=== PATIENT | female | born 1930 | race Caucasian/White ===

== ENCOUNTER 2017-10-25 08:20 | Emergency (ER) | payer MEDICARE ==
[2017-10-25 08:31] VITALS: O2SAT 97
--- NOTE | 2017-10-25 08:37 | ERPHSYRPT ---
- History of Present Illness Time Seen by Provider: 10/25/17 08:32 Source: patient, EMS Exam Limitations: no limitations Patient Subjective Stated Complaint: [facility]YANT REPORTS FINDING PT ON FLOOR AT [id number] THAT HER LEFT KNEE "LOOKED TWISTED" Triage Nursing Assessment: PT PRESENTS TO ED WITH NO C/O PAIN-FULL ROM TO BILATERAL LOWER EXTREMITIES-NO OBVIOUS DEFORMITY-NO SWELLING OR OTHER INJURY NOTED-PT AMBULATORY WITH NO DIFFICULTY OR C/O PAIN-PT ALERT-ANSWERING QUESTIONS CORRECTLY Physician History: 86-year-old white female with history of Alzheimer's, bipolar, dementia, TIA, COPD, anxiety Patient arrives via medics patient apparently fell at the custodial. Patient is not complaining of any pain at this time patient has no complaints at this time. Past medical history includes bipolar, Alzheimer, dementia, TIA, COPD, anxiety Patient has a history of a pubic rami fracture with involvement of the left acetabular anterior column in the past. Also a history of a right hip replacement Past surgical history right hip replacement Timing/Duration: today Severity: mild Modifying Factors: Improves With: other (fall at custodial prior to arrival ) Associated Symptoms: No nausea, No vomiting, No abdominal pain, No shortness of breath, No heartburn, No diaphoresis, No cough, No chills, No chest pain, No fever, No headaches, No loss of appetite, No malaise, No rash, No syncope, No seizure, No weakness Allergies/Adverse Reactions: No Known Drug Allergies Allergy (Verified 10/25/17 08:32) Home Medications: Carboxymethylcellulose Sodium [Thera Tears] 1 each OP QID 01/31/13 [History] Clopidogrel Bisulfate 75 mg [PLAVIX 75 MG Tablet] 75 mg PO DAILY 01/31/13 [History] Lamotrigine [Lamictal] 100 mg PO BID 01/31/13 [History] Lisinopril 10 mg [Zestril 10 MG] 10 mg PO DAILY 01/31/13 [History] Olanzapine [Zyprexa] 20 mg PO HS 01/31/13 [History] Risperidone [Risperdal] 0.5 mg PO BID 01/31/13 [History] Hx Tetanus, Diphtheria Vaccination/Date Given: No Hx Influenza Vaccination/Date Given: Yes Hx Pneumococcal Vaccination/Date Given: No Immunizations Up to Date: Yes - Review of Systems Constitutional: No Fever, No Chills Eyes: No Symptoms Ears, Nose, & Throat: No Symptoms Respiratory: No Cough, No Dyspnea Cardiac: No Chest Pain, No Edema, No Syncope Abdominal/Gastrointestinal: No Abdominal Pain, No Nausea, No Vomiting, No Diarrhea Genitourinary Symptoms: No Dysuria Musculoskeletal: No Symptoms, Fall, Other (patient fell at custodial apparently, patient appeared to have twisted her which needle left rightleft knee at the custodial), No Arthralgias, No Back Pain, No Neck Pain, No Deformity, No Injury, No Joint Redness, No Joint Pain, No Joint Swelling, No Myalgias Skin: No Rash Neurological: No Dizziness, No Focal Weakness, No Sensory Changes Psychological: No Symptoms Endocrine: No Symptoms All Other Systems: Reviewed and Negative - Past Medical History Pertinent Past Medical History: Yes Neurological History: Alzheimer's Disease, Dementia, TIA Cardiac History: No Pertinent History Respiratory History: COPD Endocrine Medical History: No Pertinent History Musculoskeletal History: Arthritis GI Medical History: No Pertinent History History: No Pertinent History Psycho-Social History: Anxiety, Bipolar Female Reproductive Disorders: No Pertinent History - Past Surgical History Past Surgical History: Yes Musculoskeletal: Orthopedic Surgery Other Surgical History: left hip replacement - Social History Smoking Status: Former smoker Exposure to second hand smoke: No Drug Use: none Patient Lives Alone: No - Female History Hx Now: No - Nursing Vital Signs Nursing Vital Signs: Initial Vital Signs Temperature 97.9 F 10/25/17 08:27 Pulse Rate 86 10/25/17 08:27 Respiratory Rate 18 10/25/17 08:27 Blood Pressure 146/73 10/25/17 08:27 O2 Sat by Pulse Oximetry 97 10/25/17 08:27 Pain Scale Pain Intensity 0 - Physical Exam General Appearance: no apparent distress, alert, other (elderly-appearing white female in no apparent distress oriented to person and place) Eye Exam: PERRL/EOMI, eyes nml inspection Ears, Nose, Throat Exam: normal ENT inspection, TMs normal, pharynx normal, moist mucous membranes Neck Exam: normal inspection, non-tender, supple, full range of motion Respiratory Exam: normal breath sounds, lungs clear, No respiratory distress Cardiovascular Exam: regular rate/rhythm, normal heart sounds, normal peripheral pulses Gastrointestinal/Abdomen Exam: soft, normal bowel sounds, No tenderness, No mass Back Exam: normal inspection, normal range of motion, No CVA tenderness, No vertebral tenderness Extremity Exam: normal inspection, normal range of motion, pelvis stable, other (patient with full range of motion to all extremities, no hip tenderness, no knee tenderness full range of motion bilateral anklles) Neurologic Exam: alert, oriented x 3, cooperative, normal mood/affect, nml cerebellar function, nml station & gait, sensation nml, No motor deficits Skin Exam: warm, dry, other (stasis dermatitis bilateral lower extremities, ), No rash Lymphatic Exam: No adenopathy SpO2 Interpretation: normal (97%) SpO2: 97 Oxygen Delivery: Room Air - Course Nursing assessment & vital signs reviewed: Yes - Progress Progress: improved Progress Note: 10/25/17 08:38 86-year-old white female with history of prior hip replacement on the right. Noted to fall at the custodial this morning. The nurse apparently at the custodial felt that the patient had a twisted knee on the left. Patient arrives she is in no apparent distress she has full range of motion to all extremities pelvis is stable there is no pain with movement of hips knees and ankles. She does have chronic stasis dermatitis bilateral extremities however there is no signs of infection patient is able to ambulate with the nurses without problems will return to custodial. . - Departure Time of Disposition: 08:39 Departure Disposition: Extended Care Facility Clinical Impression: Accidental fall Qualifiers: Encounter type: initial encounter Qualified Code(s): W19.XXXA - Unspecified fall, initial encounter Condition: Fair Critical Care Time: No Referrals: SAMMI MINA [Primary Care Provider] - Instructions: Preventing Falls Additional Instructions: Return to custodial Resume current medications and treatments. Follow-up with family . Return for acute distress or for severe symptoms.
[2017-10-25 09:29] VITALS: BP 169/72; PULSE 82
== END 2017-10-25 09:29 | disposition home or self-care (01) ==
LOC: ED 08:20
DX: Z03.89 Encounter for observation for other suspected diseases and conditions ruled out (principal); W19.XXXA Unspecified fall, initial encounter; Y92.129 Unspecified place in nursing home as the place of occurrence of the external cause; I87.2 Venous insufficiency (chronic) (peripheral); Z79.899 Other long term (current) drug therapy; Z79.01 Long term (current) use of anticoagulants
CPT/HCPCS: 99281

== ENCOUNTER 2017-12-05 18:38 | Emergency (ER) | payer MEDICARE ==
[2017-12-05] MEDS ORDERED: PROVENTIL 2.5 MG/3 ML NEB IH ONE ×2 (18:40→18:48)
[2017-12-05] MEDS ORDERED: Sodium Chloride 0.9% 1000 ML 1,000 ML IV SCH (18:45)
[2017-12-05] MEDS ORDERED: Zosyn 3.375GM/100 Ml D5W 3.375 GM/100 ML IVPB IV STA (18:50)
[2017-12-05 19:00] LABS: Lactic Acid 1.1 (0.4-2.0); VBG BASE EXCESS 1.4 (-2.0-2.0); VBG CARBOXYHEMOGLOBIN 1.8 % T HGB (0.0-6.9); VBG HCO3- 33.4 meq/L (22-28); VBG O2 SATURATION 86.9 (95-100); VBG POTASSIUM 3.9 (3.5-5.1)
[2017-12-05 19:01] LABS: VBG pH 7.14 (7.32-7.42)
[2017-12-05 19:09] LABS: Granulocyte Absolute (ANC) 4.41 (1.4-6.9); Hemoglobin 12.2 gm/dl (12.0-16.0); Mean Cell Volume 96.5 fl (78-100); Mean Corpuscular Hgb Concent. 31.3 g/dl (32-36); Mean Platelet Volume 10.3 fl (6-9.5); Platelet Count 369 K/mm3 (150-450); Red Blood Count 4.04 M/mm3 (4.1-5.4); Red Cell Distribution Width 13.5 % (11.5-14.0); White Blood Count 10.1 K/mm3 (4.0-10.5)
[2017-12-05 19:17] LABS: Mean Corpuscular Hemoglobin 30.1 pg (26-32)
[2017-12-05 19:20] VITALS: O2SAT 100
[2017-12-05] MEDS ORDERED: Zosyn 3.375GM/100 Ml D5W 3.375 GM/100 ML IVPB IV ONE (19:25)
[2017-12-05] MEDS ORDERED: Sodium Chloride 0.9% 1000 ML 1,000 ML ONE (19:25)
[2017-12-05 19:30] LABS: ALBUMIN 4.3 g/dL (3.5-5.0); ALKALINE PHOSPHATASE 108 U/L (38-126); ANION GAP 15.7 MEQ/L (5-15); BLOOD UREA NITROGEN 17 mg/dL (7-17); CHLORIDE 95 mmol/L (98-107); Calcium 9.3 mg/dL (8.4-10.2); Carbon Dioxide 30 mmol/L (22-30); Creatinine 1 0.92 mg/dL (0.52-1.04); Glucose 307 mg/dL (74-106); Potassium 3.9 mmol/L (3.5-5.1); SGOT/AST 27 U/L (14-36); SGPT/ALT 15 U/L (0-35); SODIUM 137 mmol/L (137-145); Total Protein 7.2 g/dL (6.3-8.2)
[2017-12-05 19:39] LABS: NT PRO BNP 494 pg/mL (0-1800)
[2017-12-05 19:43] LABS: PTT 32.3 SECONDS (25.3-37.0)
[2017-12-05 19:57] LABS: Appearance CLEAR (CLEAR); Bilirubin NEGATIVE (NEGATIVE); Glucose 250 mg/dL (NEGATIVE); Ketones NEGATIVE (NEGATIVE); Leukocyte Esterase TRACE (NEGATIVE); Nitrite NEGATIVE (NEGATIVE); Protein,Urine Dip NEGATIVE (Negative); Urobilinogen NORMAL mg/dL (0-1)
[2017-12-05 19:58] LABS: Bacteria FEW /HPF (NEGATIVE); Blood 50 Ery/ul (0-5); Epithelial Cells FEW /HPF (FEW); WBC 0-2 /HPF (0-5)
[2017-12-05 20:03] LABS: ATYPICAL LYMPHS 12 %; BAND 2 % (0.0-2.0); Lymphocytes 40 % (24-44); Monocyte 2 % (0.0-12.0); Neutrophils 44 % (36.0-66.0); Platelet Estimate NORMAL (NORMAL); Total Cells Counted 100
--- NOTE | 2017-12-05 20:10 | ERPHSYRPT ---
- History of Present Illness Time Seen by Provider: 12/05/17 18:40 Source: patient, EMS Exam Limitations: other (DEMENTIA) Patient Subjective Stated Complaint: EMS REPORTS PATIENT WAS EATING AND HAD SUDDEN ONSET OF SHORTNESS OF BREATH. NO HX CHF OR COPD. SKIN WARM/DRY. PATIENT RESPONDING TO VERBAL STIMULI BUT IS NOT ABLE TO SPEAK AT THIS TIME. Triage Nursing Assessment: SKIN WARM/DRY. PATIENT RESPONDING TO VERBAL STIMULI BUT IS NOT ABLE TO SPEAK AT THIS TIME. NRB MASK ON AT 15L. SUCTIONED ORALLY WITH ONLY SMALL AMT CLEAR MUCOUS OBTAINED. Physician History: ABOUT 90 MINUTES AGO PT WAS EATING AND STARTED CHOKING WITH RESULTANT SHORTNESS OF AIR WITH OXYGEN SATURATION IN THE 60'S AT THE LONGTERM. PT HAS DEMENTIA. Allergies/Adverse Reactions: No Known Drug Allergies Allergy (Verified 12/05/17 19:08) Home Medications: Clindamycin HCl [Clindamycin HCl] 300 mg PO TID 10/25/17 [History] Clopidogrel Bisulfate [Clopidogrel] 75 mg PO DAILY 10/25/17 [History] Furosemide [Furosemide] 40 mg PO DAILY 10/25/17 [History] Hydrocodone/Acetaminophen [Hydrocodone-Acetamin 5-325 mg] 1 tab PO UD PRN [History] Lamotrigine [Lamotrigine] 25 mg PO BID 10/25/17 [History] Mirtazapine [Mirtazapine] 15 mg PO HS 10/25/17 [History] Olanzapine [Olanzapine] 20 mg PO HS 10/25/17 [History] Multivit,Tx with Iron,Minerals [Bykybxrj-C-A with Minerals] 1 each PO DAILY [History] Potassium Chloride 10 Meq Tab* [Klor Con 10 MEQ] 10 meq PO DAILY 12/05/17 [ History] Hx Tetanus, Diphtheria Vaccination/Date Given: No Hx Influenza Vaccination/Date Given: Yes Hx Pneumococcal Vaccination/Date Given: Yes - Review of Systems Respiratory: Dyspnea All Other Systems: Unable due to dementia - Past Medical History Pertinent Past Medical History: Yes Neurological History: Alzheimer's Disease, Dementia, TIA Cardiac History: No Pertinent History Respiratory History: COPD Endocrine Medical History: No Pertinent History Musculoskeletal History: Arthritis GI Medical History: No Pertinent History History: No Pertinent History Psycho-Social History: Anxiety, Bipolar Female Reproductive Disorders: No Pertinent History - Past Surgical History Past Surgical History: Yes Musculoskeletal: Orthopedic Surgery Other Surgical History: left hip replacement - Social History Smoking Status: Former smoker Exposure to second hand smoke: No Drug Use: none Patient Lives Alone: No - Nursing Vital Signs Nursing Vital Signs: Initial Vital Signs Temperature 98.8 F 12/05/17 18:40 Pulse Rate 112 H 12/05/17 18:40 Respiratory Rate 30 H 12/05/17 18:40 Blood Pressure 203/108 12/05/17 18:40 O2 Sat by Pulse Oximetry 88 L 12/05/17 18:40 Pain Scale Pain Intensity 0 - Physical Exam General Appearance: alert Eye Exam: PERRL/EOMI Ears, Nose, Throat Exam: pharynx normal, moist mucous membranes, other (H.O.H.) Neck Exam: normal inspection Respiratory Exam: diminished breath sounds Cardiovascular Exam: tachycardia Gastrointestinal/Abdomen Exam: soft, normal bowel sounds Back Exam: other (DECUBITUS ULCER ~ 1 CM DIAMETER MID BACK) Extremity Exam: pedal edema (+1 BILATERALLY) Neurologic Exam: alert, cooperative Skin Exam: decubitus (MEDIAL ASPECT OF BUTTOCKS ) SpO2 Interpretation: normal SpO2: 100 Oxygen Delivery: BiPap - Course Nursing assessment & vital signs reviewed: Yes EKG Interpreted by Me: RATE (105), Sinus Tach, Left [place] Deviation, Non- specific ST Changes - Radiology Exams Chest X-ray Interpretation: Interpreted by me (RLL PNEUMONIA) Ordered Tests: Active Orders 24 hr Category Date Time Status [employer] Analyst STAT Care 12/05/17 18:41 Active Catheter-[place] STAT Care 12/05/17 18:40 Active EKG-ER Only STAT Care 12/05/17 18:40 Active IV Insertion STAT Care 12/05/17 18:40 Active NPO (ED) STAT Care 12/05/17 18:40 Active Pulse Oximetry (ED) STAT Care 12/05/17 18:42 Active CHEST 1 VIEW (PORTABLE) Stat Exams 12/05/17 18:50 Taken ABG [ARTERIAL BLOOD GASES] Urgent Lab 12/05/17 22:20 Completed BLOOD CULTURE Stat Lab 12/05/17 19:05 Received CBC W DIFF Stat Lab 12/05/17 18:30 Completed CMP Stat Lab 12/05/17 18:30 Completed CULTURE,SPUTUM Stat Lab 12/05/17 18:40 Uncollected CULTURE,URINE Stat Lab 12/05/17 19:21 Received Lactic Acid Stat Lab 12/05/17 18:40 Completed MAGNESIUM Stat Lab 12/05/17 18:30 Completed Manual Differential NC Stat Lab 12/05/17 18:30 Completed NT PRO BNP Stat Lab 12/05/17 18:30 Completed PROTIME WITH INR Stat Lab 12/05/17 18:30 Completed PTT Stat Lab 12/05/17 18:30 Completed TROPONIN Q3H Lab 12/05/17 18:30 Completed TROPONIN Q3H Lab 12/05/17 21:55 Received TROPONIN Q3H Lab 12/06/17 00:45 Ordered TROPONIN Q3H Lab 12/06/17 03:45 Ordered TROPONIN Q3H Lab 12/06/17 06:45 Ordered UA W/ MICROSCOPIC Stat Lab 12/05/17 19:21 Completed VENOUS BLOOD GAS Stat Lab 12/05/17 18:40 Completed BiPap/CPAP Assessment STAT RT 12/05/17 18:42 Active Respiratory Nebulizer STAT RT 12/05/17 18:41 Completed Medication Summary Generic Name Dose Route Start Last Admin Trade Name Freq PRN Reason Stop Dose Admin Sodium Chloride 1,000 mls @ 100 mls/hr 12/05/17 18:45 12/05/17 19:26 Sodium Chloride 0.9% 1000 Ml IV 01/04/18 18:44 100 mls/hr .Q10H ROYA Administration Discontinued Medications Generic Name Dose Route Start Last Admin Trade Name Freq PRN Reason Stop Dose Admin Albuterol Sulfate 2.5 mg 12/05/17 18:40 12/05/17 18:48 Proventil 2.5 Mg/3 Ml Neb IH 12/05/17 18:41 2.5 mg STAT ONE Administration Albuterol Sulfate Confirm 12/05/17 18:48 Proventil 2.5 Mg/3 Ml Neb Administered 12/05/17 18:49 Dose 2.5 mg IH .STK-MED ONE Piperacillin Sod/Tazobactam Sod 3.375 gm in 100 mls @ 200 mls/hr 12/05/17 18: 50 12/05/17 19:27 Zosyn 3.375gm/100 Ml D5w IV 12/05/17 19:19 200 mls/hr STAT STA Administration Piperacillin Sod/Tazobactam Sod Confirm 12/05/17 19:25 Zosyn 3.375gm/100 Ml D5w Administered 12/05/17 19:26 Dose 3.375 gm in 100 mls @ ud IV .STK-MED ONE Lab/Rad Data: Laboratory Result Diagrams 12/05/17 18:30 12/05/17 18:30 Laboratory Results 12/05/17 12/05/17 12/05/17 Range/Units 22:20 19:21 18:40 WBC (4.0-10.5) K/mm3 RBC (4.1-5.4) M/mm3 Hgb (12.0-16.0) gm/dl Hct (35-47) % MCV (78-100) fl MCH (26-32) pg MCHC (32-36) g/dl RDW (11.5-14.0) % Plt Count (150-450) K/mm3 MPV (6-9.5) fl Segmented Neutrophils (36.0-66.0) % Band Neutrophils (0.0-2.0) % Lymphocytes (Manual) (24-44) % Monocytes (Manual) (0.0-12.0) % Differential Comment Atypical Lymphocytes % Platelet Estimate (NORMAL) INR (0.8-3.0) APTT (25.3-37.0) SECONDS Puncture Site RIGHT BRACHIAL pCO2 64 H* (35-45) mmHg pO2 200 H* (75-100) mmHg Base Excess 5.8 H (-2.0-2.0) O2 Saturation 96.7 (94-100) g/dF ABG pH 7.33 L (7.35-7.45) ABG HCO3 33.7 H* (22-28) ABG O2 Sat (Measured) 99.5 (95-100) % Angel Test NOT APPLICABLE VBG pH 7.14 L* (7.32-7.42) VBG pCO2 at Pat Temp 98 H* (42-55) mm/Hg VBG pO2 at Pat Temp 55 H (25-40) mm/Hg VBG HCO3 33.4 H* (22-28) meq/L VBG O2 Sat (Sukhjinder) 86.9 L (95-100) VBG Base Excess 1.4 (-2.0-2.0) VBG Hemoglobin 13.0 VBG Carboxyhemoglobin 1.8 (0.0-6.9) % T HGB A-a Gradient 255 a/A Ratio 0.44 Hemoglobin 12.9 Carboxyhemoglobin 1.4 (0.0-6.9) % THgb Methemoglobin 1.4 (1.4-1.5) % POC Potassium 3.9 (3.5-5.1) Temperature 37.0 C POC O2 Flow Rate 75 % Vent Mode BiPAP Inspiratory BiPAP 14 Expiratory BiPAP 8 Sodium (137-145) mmol/L Potassium 3.7 (3.5-5.1) mmol/L Chloride (98-107) mmol/L Carbon Dioxide (22-30) mmol/L Anion Gap (5-15) MEQ/L BUN (7-17) mg/dL Creatinine (0.52-1.04) mg/dL Estimated GFR ML/MIN Glucose (74-106) mg/dL Lactic Acid 1.1 (0.4-2.0) Calcium (8.4-10.2) mg/dL Magnesium (1.6-2.3) mg/dL Total Bilirubin (0.2-1.3) mg/dL AST (14-36) U/L ALT (0-35) U/L Alkaline Phosphatase (38-126) U/L Troponin I (0.000-0.034) ng/mL NT-Pro-B Natriuret Pep (0-1800) pg/mL Serum Total Protein (6.3-8.2) g/dL Albumin (3.5-5.0) g/dL Ur Collection Type CATH Urine Color YELLOW (YELLOW) Urine Appearance CLEAR (CLEAR) Urine pH 5.0 (5-6) Ur Specific [place] 1.010 (1.005-1.025) Urine Protein NEGATIVE (Negative) Urine Ketones NEGATIVE (NEGATIVE) Urine Blood 50 (0-5) Shan/ul Urine Nitrite NEGATIVE (NEGATIVE) Urine Bilirubin NEGATIVE (NEGATIVE) Urine Urobilinogen NORMAL (0-1) mg/dL Ur Leukocyte Esterase TRACE (NEGATIVE) Urine Microscopic RBC 0-2 (0-2) /HPF Urine Microscopic WBC 0-2 (0-5) /HPF Ur Epithelial Cells FEW (FEW) /HPF Urine Bacteria FEW (NEGATIVE) /HPF Urine Culture Reflexed YES (NO) Urine Glucose 250 (NEGATIVE) mg/dL Specimen Received 12/05/17 19312/05/17 12/05/17 12/05/17 Range/Units 18:30 18:30 18:30 WBC (4.0-10.5) K/mm3 RBC (4.1-5.4) M/mm3 Hgb (12.0-16.0) gm/dl Hct (35-47) % MCV (78-100) fl MCH (26-32) pg MCHC (32-36) g/dl RDW (11.5-14.0) % Plt Count (150-450) K/mm3 MPV (6-9.5) fl Segmented Neutrophils (36.0-66.0) % Band Neutrophils (0.0-2.0) % Lymphocytes (Manual) (24-44) % Monocytes (Manual) (0.0-12.0) % Differential Comment Atypical Lymphocytes % Platelet Estimate (NORMAL) INR 1.00 (0.8-3.0) APTT 32.3 (25.3-37.0) SECONDS Puncture Site pCO2 (35-45) mmHg pO2 (75-100) mmHg Base Excess (-2.0-2.0) O2 Saturation (94-100) g/dF ABG pH (7.35-7.45) ABG HCO3 (22-28) ABG O2 Sat (Measured) (95-100) % Angel Test VBG pH (7.32-7.42) VBG pCO2 at Pat Temp (42-55) mm/Hg VBG pO2 at Pat Temp (25-40) mm/Hg VBG HCO3 (22-28) meq/L VBG O2 Sat (Sukhjinder) (95-100) VBG Base Excess (-2.0-2.0) VBG Hemoglobin VBG Carboxyhemoglobin (0.0-6.9) % T HGB A-a Gradient a/A Ratio Hemoglobin Carboxyhemoglobin (0.0-6.9) % THgb Methemoglobin (1.4-1.5) % POC Potassium (3.5-5.1) Temperature C POC O2 Flow Rate % Vent Mode Inspiratory BiPAP Expiratory BiPAP Sodium 137 (137-145) mmol/L Potassium 3.9 (3.5-5.1) mmol/L Chloride 95 L (98-107) mmol/L Carbon Dioxide 30 (22-30) mmol/L Anion Gap 15.7 H (5-15) MEQ/L BUN 17 (7-17) mg/dL Creatinine 0.92 (0.52-1.04) mg/dL Estimated GFR > 60 ML/MIN Glucose 307 H (74-106) mg/dL Lactic Acid (0.4-2.0) Calcium 9.3 (8.4-10.2) mg/dL Magnesium 1.8 (1.6-2.3) mg/dL Total Bilirubin 0.30 (0.2-1.3) mg/dL AST 27 (14-36) U/L ALT 15 (0-35) U/L Alkaline Phosphatase 108 (38-126) U/L Troponin I 0.016 (0.000-0.034) ng/mL NT-Pro-B Natriuret Pep 494 (0-1800) pg/mL Serum Total Protein 7.2 (6.3-8.2) g/dL Albumin 4.3 (3.5-5.0) g/dL Ur Collection Type Urine Color (YELLOW) Urine Appearance (CLEAR) Urine pH (5-6) Ur Specific [place] (1.005-1.025) Urine Protein (Negative) Urine Ketones (NEGATIVE) Urine Blood (0-5) Shan/ul Urine Nitrite (NEGATIVE) Urine Bilirubin (NEGATIVE) Urine Urobilinogen (0-1) mg/dL Ur Leukocyte Esterase (NEGATIVE) Urine Microscopic RBC (0-2) /HPF Urine Microscopic WBC (0-5) /HPF Ur Epithelial Cells (FEW) /HPF Urine Bacteria (NEGATIVE) /HPF Urine Culture Reflexed (NO) Urine Glucose (NEGATIVE) mg/dL Specimen Received 12/05/17 Range/Units 18:30 WBC 10.1 (4.0-10.5) K/mm3 RBC 4.04 L (4.1-5.4) M/mm3 Hgb 12.2 (12.0-16.0) gm/dl Hct 39.0 (35-47) % MCV 96.5 (78-100) fl MCH 30.1 (26-32) pg MCHC 31.3 L (32-36) g/dl RDW 13.5 (11.5-14.0) % Plt Count 369 (150-450) K/mm3 MPV 10.3 H (6-9.5) fl Segmented Neutrophils 44 (36.0-66.0) % Band Neutrophils 2 (0.0-2.0) % Lymphocytes (Manual) 40 (24-44) % Monocytes (Manual) 2 (0.0-12.0) % Differential Comment NORMAL Atypical Lymphocytes 12 % Platelet Estimate NORMAL (NORMAL) INR (0.8-3.0) APTT (25.3-37.0) SECONDS Puncture Site pCO2 (35-45) mmHg pO2 (75-100) mmHg Base Excess (-2.0-2.0) O2 Saturation (94-100) g/dF ABG pH (7.35-7.45) ABG HCO3 (22-28) ABG O2 Sat (Measured) (95-100) % Angel Test VBG pH (7.32-7.42) VBG pCO2 at Pat Temp (42-55) mm/Hg VBG pO2 at Pat Temp (25-40) mm/Hg VBG HCO3 (22-28) meq/L VBG O2 Sat (Sukhjinder) (95-100) VBG Base Excess (-2.0-2.0) VBG Hemoglobin VBG Carboxyhemoglobin (0.0-6.9) % T HGB A-a Gradient a/A Ratio Hemoglobin Carboxyhemoglobin (0.0-6.9) % THgb Methemoglobin (1.4-1.5) % POC Potassium (3.5-5.1) Temperature C POC O2 Flow Rate % Vent Mode Inspiratory BiPAP Expiratory BiPAP Sodium (137-145) mmol/L Potassium (3.5-5.1) mmol/L Chloride (98-107) mmol/L Carbon Dioxide (22-30) mmol/L Anion Gap (5-15) MEQ/L BUN (7-17) mg/dL Creatinine (0.52-1.04) mg/dL Estimated GFR ML/MIN Glucose (74-106) mg/dL Lactic Acid (0.4-2.0) Calcium (8.4-10.2) mg/dL Magnesium (1.6-2.3) mg/dL Total Bilirubin (0.2-1.3) mg/dL AST (14-36) U/L ALT (0-35) U/L Alkaline Phosphatase (38-126) U/L Troponin I (0.000-0.034) ng/mL NT-Pro-B Natriuret Pep (0-1800) pg/mL Serum Total Protein (6.3-8.2) g/dL Albumin (3.5-5.0) g/dL Ur Collection Type Urine Color (YELLOW) Urine Appearance (CLEAR) Urine pH (5-6) Ur Specific [place] (1.005-1.025) Urine Protein (Negative) Urine Ketones (NEGATIVE) Urine Blood (0-5) Shan/ul Urine Nitrite (NEGATIVE) Urine Bilirubin (NEGATIVE) Urine Urobilinogen (0-1) mg/dL Ur Leukocyte Esterase (NEGATIVE) Urine Microscopic RBC (0-2) /HPF Urine Microscopic WBC (0-5) /HPF Ur Epithelial Cells (FEW) /HPF Urine Bacteria (NEGATIVE) /HPF Urine Culture Reflexed (NO) Urine Glucose (NEGATIVE) mg/dL Specimen Received - Progress Discussed with : Pop (ADMIT ICU - [id number]) - Departure Time of Disposition: 22:49 Departure Disposition: In-patient Admission Clinical Impression: RLL PNEUMONIA, DEMENTIA, COPD, ARTHRITIS, ANXIETY, BIPOLAR DISORDER Condition: Serious Critical Care Time: Yes Critical Care Time(excluding separately billable procedures): 30-74 minutes Referrals: MACKENZIE LY MD [Primary Care Provider] -
[2017-12-05 22:23] LABS: A-aADO2 255; ABG HEMOGLOBIN 12.9; ABG POTASSIUM 3.7 (3.5-5.1); ARTERIAL BLD GAS O2 SATURATION 99.5 % (95-100); ARTERIAL BLOOD GAS BASE EXCESS 5.8 (-2.0-2.0); ARTERIAL BLOOD GAS FIO2 75 %; ARTERIAL BLOOD GAS PO2 200 mmHg (75-100); ARTERIAL BLOOD GAS VENT MODE BiPAP; ARTERIAL BLOOD GAS pH 7.33 (7.35-7.45); CARBOXYHEMOGLOBIN 1.4 % THgb (0.0-6.9); HCO3- 33.7 (22-28); HGB O2 SAT 96.7 g/dF (94-100); Methhemoglobin 1.4 % (1.4-1.5); paO2 pAO1 0.44
[2017-12-05 22:24] LABS: ABG SITE RIGHT BRACHIAL; ARTERIAL BLOOD GAS PCO2 64 mmHg (35-45)
[2017-12-06 01:24] VITALS: BP 168/81; PULSE 98
--- NOTE | 2017-12-06 09:02 | XRAY ---
Indication: Short of breath. Possible aspiration. Comparison: January 31, 2013. Portable chest again hyperinflated with new right lung patchy interstitial alveolar opacities without consolidation or large effusion. Left upper lung clear. Again cardiomegaly partially obscures the left lung base. Bony thorax intact again with mild osteopenia, degenerative changes, and scoliosis. Impression: New right lung interstitial alveolar opacities. Stable COPD and cardiomegaly.
== END 2017-12-06 00:45 | disposition short-term general hospital (02) ==
LOC: ED 18:38
DX: J18.9 Pneumonia, unspecified organism (principal); R77.8 Other specified abnormalities of plasma proteins; F03.90 Unspecified dementia, unspecified severity, without behavioral disturbance, psychotic disturbance, mood disturbance, and anxiety; J44.9 Chronic obstructive pulmonary disease, unspecified; M19.90 Unspecified osteoarthritis, unspecified site; F41.9 Anxiety disorder, unspecified; F31.9 Bipolar disorder, unspecified; Z79.899 Other long term (current) drug therapy
CPT/HCPCS: 93041; 99285; 36000; 96360; 96361; 93005; 87040; 81000; 85610; 85730; 36415; 83880; 83735; 85025; 80053; 84484; 87086; 71045; 94002; 82803; 82375; 36600; 82805; 94640; 83605; P9612; 51702; J2543; A9270-GY

== ENCOUNTER 2017-12-12 12:27 | Emergency (ER) | payer MEDICARE ==
[2017-12-12] MEDS ORDERED: DUONEB 0.5-3 MG/3 ml Neb IH ONE ×2 (12:29→12:35)
--- NOTE | 2017-12-12 12:34 | ERPHSYRPT ---
- History of Present Illness Time Seen by Provider: 12/12/17 12:31 Source: patient, EMS Exam Limitations: clinical condition Physician History: mild to mod shortness of breath today at rest at the [place], no home oxygen, found 83% O2sat, deaf and poor historian, no fever Timing/Duration: today Allergies/Adverse Reactions: No Known Drug Allergies Allergy (Verified 12/12/17 12:53) Home Medications: Clindamycin HCl [Clindamycin HCl] 300 mg PO TID 10/25/17 [History] Clopidogrel Bisulfate [Clopidogrel] 75 mg PO DAILY 10/25/17 [History] Furosemide [Furosemide] 40 mg PO DAILY 10/25/17 [History] Hydrocodone/Acetaminophen [Hydrocodone-Acetamin 5-325 mg] 1 tab PO UD PRN [History] Lamotrigine [Lamotrigine] 25 mg PO BID 10/25/17 [History] Mirtazapine [Mirtazapine] 15 mg PO HS 10/25/17 [History] Olanzapine [Olanzapine] 20 mg PO HS 10/25/17 [History] Multivit,Tx with Iron,Minerals [Boxasljo-M-C with Minerals] 1 each PO DAILY [History] Potassium Chloride 10 Meq Tab* [Klor Con 10 MEQ] 10 meq PO DAILY 12/05/17 [ History] Hx Tetanus, Diphtheria Vaccination/Date Given: No Hx Influenza Vaccination/Date Given: Yes Hx Pneumococcal Vaccination/Date Given: Yes - Review of Systems Constitutional: No Fever Eyes: No Eye Redness Respiratory: Wheezing, No Cough Cardiac: No Syncope Abdominal/Gastrointestinal: No Vomiting Psychological: Other (pt unable to provide other ros) - Past Medical History Pertinent Past Medical History: Yes Neurological History: Alzheimer's Disease, Dementia, TIA Cardiac History: No Pertinent History Respiratory History: COPD Endocrine Medical History: No Pertinent History Musculoskeletal History: Arthritis GI Medical History: No Pertinent History History: No Pertinent History Psycho-Social History: Anxiety, Bipolar Female Reproductive Disorders: No Pertinent History - Past Surgical History Past Surgical History: Yes Musculoskeletal: Orthopedic Surgery Other Surgical History: left hip replacement - Social History Smoking Status: Former smoker Exposure to second hand smoke: No Drug Use: none Patient Lives Alone: No - Nursing Vital Signs Nursing Vital Signs: Initial Vital Signs Temperature 98.0 F 12/12/17 12:42 Pulse Rate 83 12/12/17 12:42 Respiratory Rate 28 H 12/12/17 12:42 O2 Sat by Pulse Oximetry 97 12/12/17 12:42 Pain Scale Pain Intensity 0 - Physical Exam General Appearance: no apparent distress Eye Exam: PERRL/EOMI Ears, Nose, Throat Exam: normal pharynx Neck Exam: non-tender Respiratory Exam: wheezing Cardiovascular/Chest Exam: regular rate/rhythm Abdominal/Gastrointestinal Exam: soft, No tenderness Extremity Exam: normal capillary refill Neurologic Exam: alert, No cooperative Skin Exam: warm, dry SpO2 Interpretation: hypoxic - Course Nursing assessment & vital signs reviewed: Yes EKG Interpreted by Me: Other (nsr 80 no stemi) - Radiology Exams Chest X-ray Interpretation: Discussed w/ radiologist, Other (new left infiltrate) Ordered Tests: Active Orders 24 hr Category Date Time Status Principal Database Developer STAT Care 12/12/17 12:29 Active EKG-ER Only STAT Care 12/12/17 12:29 Active IV Insertion STAT Care 12/12/17 12:29 Active Oxygen-ED Only VENTI-MASK 50% Care 12/12/17 12:29 Active Pulse Oximetry (ED) STAT Care 12/12/17 12:29 Active CHEST 1 VIEW (PORTABLE) Stat Exams 12/12/17 12:29 Completed ARTERIAL BLOOD GASES Stat Lab 12/12/17 12:44 Completed BLOOD CULTURE Stat Lab 12/12/17 12:35 Received CBC W DIFF Stat Lab 12/12/17 12:35 Completed CMP Stat Lab 12/12/17 12:35 Completed D-DIMER QUANTITATION Stat Lab 12/12/17 12:35 Received Lactic Acid Stat Lab 12/12/17 12:44 Completed Manual Differential NC Stat Lab 12/12/17 12:35 Completed NT PRO BNP Stat Lab 12/12/17 12:35 Completed PROTIME WITH INR Stat Lab 12/12/17 12:35 Received TROPONIN Q3H Lab 12/12/17 12:35 Completed TROPONIN Q3H Lab 12/12/17 15:30 Ordered TROPONIN Q3H Lab 12/12/17 18:30 Ordered TROPONIN Q3H Lab 12/12/17 21:30 Ordered TROPONIN Q3H Lab 12/13/17 00:30 Ordered BiPap/CPAP Assessment STAT RT 12/12/17 13:13 Active Respiratory Nebulizer STAT RT 12/12/17 12:30 Completed Medication Summary Generic Name Dose Route Start Last Admin Trade Name Surekha PRN Reason Stop Dose Admin Levofloxacin/Dextrose 500 mg in 100 mls @ 100 mls/hr 12/12/17 13:08 12/12/17 13:30 Levofloxacin 500mg/100ml D5w IV 12/12/17 14:07 100 mls/hr STAT STA Administration Ceftriaxone Sodium/Dextrose 1 g in 50 mls @ 100 mls/hr 12/12/17 13:39 Rocephin 1 Gm-D5w 50 Ml Bag IV 12/12/17 14:08 STAT STA Discontinued Medications Generic Name Dose Route Start Last Admin Trade Name Surekha PRN Reason Stop Dose Admin Albuterol/Ipratropium 3 ml 12/12/17 12:29 12/12/17 12:38 Duoneb 0.5-3 Mg/3 Ml Neb IH 12/12/17 12:30 3 ml STAT ONE Administration Albuterol/Ipratropium Confirm 12/12/17 12:35 Duoneb 0.5-3 Mg/3 Ml Neb Administered 12/12/17 12:36 Dose 3 ml IH .STK-MED ONE Aspirin 324 mg 12/12/17 13:43 Baby Aspirin 81 Mg Chew PO 12/12/17 13:44 STAT ONE Levofloxacin/Dextrose Confirm 12/12/17 13:29 Levofloxacin 500mg/100ml D5w Administered 12/12/17 13:30 Dose 500 mg in 100 mls @ ud IV .STK-MED ONE Lab/Rad Data: Laboratory Result Diagrams 12/12/17 12:35 12/12/17 12:35 Laboratory Results 12/12/17 12/12/17 12/12/17 Range/Units 12:44 12:35 12:35 WBC (4.0-10.5) K/mm3 RBC (4.1-5.4) M/mm3 Hgb (12.0-16.0) gm/dl Hct (35-47) % MCV (78-100) fl MCH (26-32) pg MCHC (32-36) g/dl RDW (11.5-14.0) % Plt Count (150-450) K/mm3 MPV (6-9.5) fl Puncture Site RIGHT RADIAL pCO2 70 H* (35-45) mmHg pO2 168 H* (75-100) mmHg Base Excess 11.5 H (-2.0-2.0) O2 Saturation 96.5 (94-100) g/dF ABG pH 7.36 (7.35-7.45) ABG HCO3 39.5 H* (22-28) ABG O2 Sat (Measured) 99.5 (95-100) % Angel Test YES A-a Gradient 458 a/A Ratio 0.27 Hemoglobin 11.5 Carboxyhemoglobin 1.7 (0.0-6.9) % THgb Methemoglobin 1.2 L (1.4-1.5) % Temperature 37.0 C POC O2 Flow Rate 100 % Sodium 143 (137-145) mmol/L Potassium 3.6 3.6 (3.5-5.1) mmol/L Chloride 98 (98-107) mmol/L Carbon Dioxide 37 H (22-30) mmol/L Anion Gap 12.2 (5-15) MEQ/L BUN 18 H (7-17) mg/dL Creatinine 0.91 (0.52-1.04) mg/dL Estimated GFR > 60 ML/MIN Glucose 108 H (74-106) mg/dL Lactic Acid 0.7 (0.4-2.0) Calcium 9.0 (8.4-10.2) mg/dL Total Bilirubin 0.20 (0.2-1.3) mg/dL AST 20 (14-36) U/L ALT 13 (0-35) U/L Alkaline Phosphatase 71 (38-126) U/L Troponin I 0.339 H* (0.000-0.034) ng/mL NT-Pro-B Natriuret Pep 02806 H (0-1800) pg/mL Serum Total Protein 5.9 L (6.3-8.2) g/dL Albumin 3.2 L (3.5-5.0) g/dL 12/12/17 Range/Units 12:35 WBC 5.9 (4.0-10.5) K/mm3 RBC 3.71 L (4.1-5.4) M/mm3 Hgb 11.2 L (12.0-16.0) gm/dl Hct 36.5 (35-47) % MCV 98.4 (78-100) fl MCH 30.2 (26-32) pg MCHC 30.7 L (32-36) g/dl RDW 14.4 H (11.5-14.0) % Plt Count 286 (150-450) K/mm3 MPV 10.2 H (6-9.5) fl Puncture Site pCO2 (35-45) mmHg pO2 (75-100) mmHg Base Excess (-2.0-2.0) O2 Saturation (94-100) g/dF ABG pH (7.35-7.45) ABG HCO3 (22-28) ABG O2 Sat (Measured) (95-100) % Angel Test A-a Gradient a/A Ratio Hemoglobin Carboxyhemoglobin (0.0-6.9) % THgb Methemoglobin (1.4-1.5) % Temperature C POC O2 Flow Rate % Sodium (137-145) mmol/L Potassium (3.5-5.1) mmol/L Chloride (98-107) mmol/L Carbon Dioxide (22-30) mmol/L Anion Gap (5-15) MEQ/L BUN (7-17) mg/dL Creatinine (0.52-1.04) mg/dL Estimated GFR ML/MIN Glucose (74-106) mg/dL Lactic Acid (0.4-2.0) Calcium (8.4-10.2) mg/dL Total Bilirubin (0.2-1.3) mg/dL AST (14-36) U/L ALT (0-35) U/L Alkaline Phosphatase (38-126) U/L Troponin I (0.000-0.034) ng/mL NT-Pro-B Natriuret Pep (0-1800) pg/mL Serum Total Protein (6.3-8.2) g/dL Albumin (3.5-5.0) g/dL - Progress Progress: improved Air Movement: fair Progress Note: 12/12/17 13:57 pt and family request transfer to [facility] [place] at [facility] accepts transfer Counseled pt/family regarding: lab results, diagnosis, rad results - Departure Time of Disposition: 13:58 Departure Disposition: Transfer Clinical Impression: Elevated troponin Pneumonia Qualifiers: Pneumonia type: due to unspecified organism Laterality: left Lung location: unspecified part of lung Qualified Code(s): J18.9 - Pneumonia, unspecified organism Condition: Stable Critical Care Time: No Referrals: MACKENZIE LY MD [Primary Care Provider] -
[2017-12-12 12:46] LABS: A-aADO2 458; ABG HEMOGLOBIN 11.5; ABG POTASSIUM 3.6 (3.5-5.1); ARTERIAL BLD GAS O2 SATURATION 99.5 % (95-100); ARTERIAL BLOOD GAS BASE EXCESS 11.5 (-2.0-2.0); ARTERIAL BLOOD GAS FIO2 100 %; ARTERIAL BLOOD GAS PO2 168 mmHg (75-100); ARTERIAL BLOOD GAS pH 7.36 (7.35-7.45); CARBOXYHEMOGLOBIN 1.7 % THgb (0.0-6.9); HCO3- 39.5 (22-28); HGB O2 SAT 96.5 g/dF (94-100); Lactic Acid 0.7 (0.4-2.0); Methhemoglobin 1.2 % (1.4-1.5); paO2 pAO1 0.27
[2017-12-12 12:47] LABS: ABG SITE RIGHT RADIAL; ALLEN TEST OK? YES; ARTERIAL BLOOD GAS PCO2 70 mmHg (35-45)
[2017-12-12 12:58] LABS: Hematocrit 36.5 % (35-47); Hemoglobin 11.2 gm/dl (12.0-16.0); Mean Cell Volume 98.4 fl (78-100); Mean Corpuscular Hemoglobin 30.2 pg (26-32); Mean Corpuscular Hgb Concent. 30.7 g/dl (32-36); Platelet Count 286 K/mm3 (150-450); Red Blood Count 3.71 M/mm3 (4.1-5.4); White Blood Count 5.9 K/mm3 (4.0-10.5)
[2017-12-12 12:59] LABS: Mean Platelet Volume 10.2 fl (6-9.5); Red Cell Distribution Width 14.4 % (11.5-14.0)
[2017-12-12 13:06] LABS: INR 1.49 (0.8-3.0)
--- NOTE | 2017-12-12 13:06 | XRAY ---
Indication: Short of breath. Recent pneumonia. Comparison: December 05, 2017. Portable chest again demonstrates diffuse patchy right lung airspace disease with new focus in the left midlung and new small bibasilar effusions. Stable cardiomegaly.
[2017-12-12] MEDS ORDERED: Levofloxacin 500MG/100ML D5W 500 MG/100 ML BAG IV STA (13:08)
[2017-12-12 13:23] LABS: ALBUMIN 3.2 g/dL (3.5-5.0); ALKALINE PHOSPHATASE 71 U/L (38-126); ANION GAP 12.2 MEQ/L (5-15); BLOOD UREA NITROGEN 18 mg/dL (7-17); CHLORIDE 98 mmol/L (98-107); Carbon Dioxide 37 mmol/L (22-30); Creatinine 1 0.91 mg/dL (0.52-1.04); Glucose 108 mg/dL (74-106); Potassium 3.6 mmol/L (3.5-5.1); SGOT/AST 20 U/L (14-36); SGPT/ALT 13 U/L (0-35); SODIUM 143 mmol/L (137-145); Total Protein 5.9 g/dL (6.3-8.2)
[2017-12-12] MEDS ORDERED: Levofloxacin 500MG/100ML D5W 500 MG/100 ML BAG IV ONE (13:29)
[2017-12-12 13:32] LABS: NT PRO BNP 13900 pg/mL (0-1800)
[2017-12-12] MEDS ORDERED: ROCEPHIN 1 Gm-D5w 50 ml Bag** 1 G/50 ML IVPB IV STA (13:39)
[2017-12-12] MEDS ORDERED: BABY ASPIRIN 81 MG CHEW PO ONE (13:43)
[2017-12-12] MEDS ORDERED: ROCEPHIN 1 Gm-D5w 50 ml Bag** 1 G/50 ML IVPB IV ONE (13:55)
[2017-12-12 14:09] LABS: D-DIMER QUANTITATION 2499.54 ng/mL (215-500)
[2017-12-12 14:16] VITALS: BP 164/104; PULSE 87; O2SAT 98
[2017-12-12 15:52] LABS: BAND 7 % (0.0-2.0); Basophil 1 % (0.0-1.0); Eosinophil 2 % (0.00-3.0); Lymphocytes 23 % (24-44); Monocyte 5 % (0.0-12.0); Neutrophils 62 % (36.0-66.0); Total Cells Counted 100
[2017-12-12 15:53] LABS: ANISOCYTOSIS 1+; Platelet Estimate NORMAL (NORMAL); Polychromasia 1+
== END 2017-12-12 14:50 | disposition short-term general hospital (02) ==
LOC: ED 12:27
DX: J18.9 Pneumonia, unspecified organism (principal); R77.8 Other specified abnormalities of plasma proteins; Z79.899 Other long term (current) drug therapy
CPT/HCPCS: 36000; 36415; 36600; 71045; 80053; 82375; 82803; 83605; 83880; 84484; 85025; 85379; 85610; 87040; 93005; 93041; 94002; 94640; 96365; 96366; 99285; J0696; J1956; A9270-GY